=== PATIENT | male | born 1955 | race Caucasian/White ===

== ENCOUNTER → 2017-04-07 | Outpatient (CLI) | payer OTHER | LOC: GKIC 12:10 | DX: M25.562 Pain in left knee (principal); M23.42 Loose body in knee, left knee; M17.12 Unilateral primary osteoarthritis, left knee; M23.204 Derangement of unspecified medial meniscus due to old tear or injury, left knee; M22.42 Chondromalacia patellae, left knee; M25.462 Effusion, left knee ==